=== PATIENT | female | born 1950 | race Caucasian/White ===

== ENCOUNTER 2020-08-25 08:29 | Emergency (ER) | payer MEDICARE, OTHER ==
[~2020-08-25] VITALS: Ht 167.6 cm; Wt 80.0 kg
[~2020-08-25 08:29] MED LIST: AMLODIPINE5 MG PO; HYDROCHLORO25 MG/TAB PO; LOPID600 MG PO; LOSARTAN POTASS50 MG PO; NAPROSYN250 MG PO; OMEGA 31000 MG PO; OMEPRAZOLE20 M2 PO; PRISTIQ50 MG PO; ZOFRAN4 MG/TAB PO
[2020-08-25] MEDS ORDERED: NAPROXEN DR500 MG PO (10:42)
[2020-08-25 11:25] VITALS: BP 103/60
== END 2020-08-25 11:27 | disposition home or self-care (01) ==
LOC: ED 08:29
DX: S76.912A Strain of unspecified muscles, fascia and tendons at thigh level, left thigh, initial encounter (principal); E78.5 Hyperlipidemia, unspecified; K21.9 Gastro-esophageal reflux disease without esophagitis; X58.XXXA Exposure to other specified factors, initial encounter

== ENCOUNTER 2022-12-28 20:08 | Observation (INO) | payer MEDICARE, OTHER ==
[2022-12-28] VITALS (7 sets, daily range): BP systolic 123–142; BP diastolic 63–76
[~2022-12-28] VITALS: Ht 167.6 cm; Wt 67.0 kg
[~2022-12-28 20:08] MED LIST changes: +AZITHROMYCIN500 MG PO; +CALCIUM500 M5 PO; +FEMARA2.5 M1 PO; +IRON325 M1 PO; +MULTI VIT PO; +NAPROXEN DR500 MG PO; +VENLAFAXINE150 M1 PO; +VITAMIN B-12500 MC2 PO; +ZINC50 M1 PO
[2022-12-28 21:25] LABS: BASO% 0.2 % (0-3); EOS% 0.2 % (0-8); HEMATOCRIT 44.7 % (37.0-47.0); HEMOGLOBIN 14.3 g/dl (12.0-16.0); IMMATURE GRANULOCYTES 0.2 % (0.0-5.0); LYMPH% 12.8 % (15-41); MEAN CELL VOLUME 93.9 fL CALC (80.0-100.0); MONO% 21.5 % (2-13); NEUT# 3.52 thou/uL (2.00-7.15); NEUT% 65.1 % (42-76); RED BLOOD COUNT 4.76 mill/uL (4.20-5.60); RED CELL DISTRI WIDTH 12.2 % (11.5-15.5)
[2022-12-28 21:37] LABS: ALBUMIN 3.7 g/dL (3.2-5.0); ALKALINE PHOSPHATASE 94 u/l (38-126); AMYLASE 41 u/l (30-110); ANION GAP 11 (6-22 (CALC)); BILIRUBIN, TOTAL 0.2 mg/dL (0.02-1.3); BUN 11 mg/dL (8-23); BUN/CREATININE RATIO 18 (12-20 (CALC)); CARBON DIOXIDE 26 mmol/l (22-30); CHLORIDE 103 mmol/l (95-108); CREATININE 0.6 mg/dL (0.5-1.0); GFR FOR AFR.AMER. > 60 ML/MIN (>=60 (CALC)); GFR OTHER RACES > 60 ML/MIN (>=60 (CALC)); LIPASE 14 u/l (23-300); POTASSIUM 3.7 mmol/l (3.5-5.1); SGOT/AST 21 u/l (9-36); SODIUM 137 mmol/l (137-146); TOTAL PROTEIN 6.2 g/dL (6.3-8.2)
[2022-12-29 01:58] VITALS: BP 124/60
--- NOTE | 2022-12-29 02:45 | NUR ---
PT ARRIVED TO [facility] @ 0245, VIA STRETCHER, ACCOMPANIED BY ER NURSE. PT ORIENTED TO ROOM AND USE OF CALL LIGHT. VS AND ASSESSMENT COMPLETED. EVEN AND UNLABORED RESPIRATIONS; CLEAR LUNG SOUNDS UPON AUSCULTATION. IV SITE HEALTHY AND PATENT. ACTIVE BOWEL SOUNDS X4 QUADRANTS. SAFETY PRECATIONS IN PLACE WITH CALL LIGHT IN REACH.
[2022-12-29 04:06] VITALS: BP 123/64
--- NOTE | 2022-12-29 08:00 | NUR ---
PATIENT RESTING IN BED AT THIS TIME, PATIENT C/O OF SOME ABDOMINAL CRAMPING, NO BM NOTED AT THIS TIME, SAFETY PRECAUTIONS IN PLACE.
[2022-12-29 08:10] VITALS: BP 123/64
--- NOTE | 2022-12-29 12:00 | NUR ---
PATIENT NOTED WITH SEVERAL LOOSE BM'S DURING SHIFT, PO VANCO GIVEN ORDERED, IV FLUIDS RUNNING PER ORDER, SAFETY PRECAUTIONS IN PLACE.
--- NOTE | 2022-12-29 16:00 | NUR ---
PATIENT AWAKE ALERT AND ORIENTED, NO C/O PAIN AT THIS TIME, PATIENT CONTINUES WITH LOOSE BM'S, SAFETY PRECAUTIONS IN PLACE.
[2022-12-29 18:27] VITALS: BP 119/74
--- NOTE | 2022-12-29 20:15 | NUR ---
RECEIVED REPORT FROM DAYSHIFT NURSE. PT NOTED SITTING UP ON BEDSIDE COMMODE. PT STATED HAVING MILD CRAMPS IN ABD. OFFERED HOT PACK FOR COMFORT AND FOLLOW UP WITH PAIN MEDICATION PER EMAR. EDUCATED PT ON PLAN OF CARE FOR TONIGHT. OFFERED FLUIDS TO PT. CALL LIGHT WITHIN REACH AND SAFETY PRECAUTIONS IN PLACE.
--- NOTE | 2022-12-30 00:16 | NUR ---
PT SITTING UP ON BSC. PT COMPLAINED OF STOMACH CRAMPS STILL. OFFERED PT DORI HUY OR SPRITE AND ANOTHER HEATING PACK. PT ALSO REQUESTED MORE WASH CLOTHES AND TOWELS. PT FINISHING ON BSC. CALL LIGHT WITHIN REACH AND SAFETY PRECAUTIONS IN PLACE.
[2022-12-30 03:25] VITALS: BP 124/62
--- NOTE | 2022-12-30 04:29 | NUR ---
PT LAYING FOWLERS IN BED, SLEEPING. NO S/S OF DISTRESS. CALL LIGHT WIITHIN REACH AND SAFETY PRECAUTIONS IN PLACE.
[2022-12-30 05:37] LABS: HEMATOCRIT 40.9 % (37.0-47.0); HEMOGLOBIN 12.9 g/dl (12.0-16.0); MEAN CELL VOLUME 93.8 fL CALC (80.0-100.0); MEAN CORPUSCULAR HGB 29.6 pG CALC (26.0-32.0); MEAN CORPUSCULAR HGB CONC 31.5 g/dL CAL (32.0-36.0); RED BLOOD COUNT 4.36 mill/uL (4.20-5.60); RED CELL DISTRI WIDTH 12.4 % (11.5-15.5)
[2022-12-30 05:44] LABS: ALBUMIN 3.1 g/dL (3.2-5.0); ALKALINE PHOSPHATASE 62 u/l (38-126); ANION GAP 11 (6-22 (CALC)); BUN 10 mg/dL (8-23); BUN/CREATININE RATIO 18 (12-20 (CALC)); CARBON DIOXIDE 21 mmol/l (22-30); CHLORIDE 108 mmol/l (95-108); CREATININE 0.6 mg/dL (0.5-1.0); GFR FOR AFR.AMER. > 60 ML/MIN (>=60 (CALC)); GFR OTHER RACES > 60 ML/MIN (>=60 (CALC)); MAGNESIUM 2.1 mg/dL (1.6-2.3); POTASSIUM 4.2 mmol/l (3.5-5.1); SGOT/AST 23 u/l (9-36); SODIUM 135 mmol/l (137-146); TOTAL PROTEIN 5.6 g/dL (6.3-8.2)
[2022-12-30 05:48] LABS: BILIRUBIN, TOTAL 0.3 mg/dL (0.02-1.3)
[2022-12-30 05:56] VITALS: BP 144/66
--- NOTE | 2022-12-30 08:00 | NUR ---
PT IN BED RESTING, AWAKE.NO COMPLAINTS. WILL CONTINUE TO MOINTOR.
[2022-12-30 10:12] VITALS: BP 118/58
--- NOTE | 2022-12-30 12:00 | NUR ---
PT IN BED RESTING, AWAKE.NO COMPLAINTS. WILL CONTINUE TO MOINTOR.
[2022-12-30 14:52] VITALS: BP 125/60
[2022-12-30 17:43] VITALS: BP 124/87
--- NOTE | 2022-12-30 18:48 | NUR ---
PT IN BED RESTING, AWAKE.NO COMPLAINTS. WILL CONTINUE TO MOINTOR.
--- NOTE | 2022-12-30 20:00 | NUR ---
PATIENT RESTING IN BED. ALERT AND ORIENTED. ABLE TO MAKE NEEDS KNOWN. ASSESSMENT COMPLETE. NO DISTRESS. NO COMPLAINTS OF PAIN. AMBULATES SELF TO BSC WITHOUT DIFFICULTY. REMAINS ON ISOLATION FOR CDIFF. BED REMAINS IN LOW POSITION. CALL MICHAEL IN REACH.
--- NOTE | 2022-12-31 00:12 | NUR ---
PATIENT RESTING IN BED. NO COMPLAINTS VOICED AT THIS TIME. BED REMAINS IN LOW POSITION. CALL MICHAEL IN REACH.
[2022-12-31 03:54] VITALS: BP 121/65
--- NOTE | 2022-12-31 04:50 | NUR ---
PATIENT RESTING IN BED. DENIES NEEDING ANYTHING AT THIS TIME. BED REMAINS IN LOW POSITION. CALL MICHAEL IN REACH.
[2022-12-31 05:18] VITALS: BP 135/66
[2022-12-31 05:24] LABS: HEMATOCRIT 37.6 % (37.0-47.0); HEMOGLOBIN 12.3 g/dl (12.0-16.0); MEAN CELL VOLUME 93.8 fL CALC (80.0-100.0); MEAN CORPUSCULAR HGB 30.7 pG CALC (26.0-32.0); MEAN CORPUSCULAR HGB CONC 32.7 g/dL CAL (32.0-36.0); RED BLOOD COUNT 4.01 mill/uL (4.20-5.60); RED CELL DISTRI WIDTH 12.3 % (11.5-15.5)
[2022-12-31 05:34] LABS: ALBUMIN 2.9 g/dL (3.2-5.0); ALKALINE PHOSPHATASE 63 u/l (38-126); ANION GAP 9 (6-22 (CALC)); BILIRUBIN, TOTAL 0.2 mg/dL (0.02-1.3); BUN 7 mg/dL (8-23); BUN/CREATININE RATIO 12 (12-20 (CALC)); CARBON DIOXIDE 23 mmol/l (22-30); CHLORIDE 107 mmol/l (95-108); CREATININE 0.6 mg/dL (0.5-1.0); GFR FOR AFR.AMER. > 60 ML/MIN (>=60 (CALC)); GFR OTHER RACES > 60 ML/MIN (>=60 (CALC)); SGOT/AST 18 u/l (9-36); SODIUM 136 mmol/l (137-146)
[2022-12-31 05:37] LABS: POTASSIUM 3.3 mmol/l (3.5-5.1)
--- NOTE | 2022-12-31 08:10 | NUR ---
PT LYING IN BED. NO COMPLAINTS/DISTRESS AT THIS TIME. WILL CONTINUE TO MONITOR.
[2022-12-31 10:00] VITALS: BP 115/66
[2022-12-31] MEDS ORDERED: PEPCID20 MG PO (13:01)
[2022-12-31] MEDS ORDERED: FLORASTOR250 M1 PO (13:01)
[2022-12-31] MEDS ORDERED: VANCOMYCIN HCL125 M1 PO (13:02)
--- NOTE | 2022-12-31 15:29 | NUR ---
PT DC AMBULATORY WITH FAMILY.
== END 2022-12-31 15:57 | disposition home or self-care (01) ==
LOC: ED 20:08 → ED-I 23:50 → ED 12-29 → MS2 12-29 00:01
PROVIDERS: Emergency Medicine; ADMIT Internal Medicine; ATTEND Internal Medicine
DX: A04.72 Enterocolitis due to Clostridium difficile, not specified as recurrent (principal); K21.9 Gastro-esophageal reflux disease without esophagitis; F41.9 Anxiety disorder, unspecified; F32.A Depression, unspecified; E66.9 Obesity, unspecified; M85.88 Other specified disorders of bone density and structure, other site; Z87.442 Personal history of urinary calculi; Z98.84 Bariatric surgery status; Z85.3 Personal history of malignant neoplasm of breast
CPT/HCPCS: G0378; J1650; Q9967